=== PATIENT | male | born 1980 | race Hispanic/Latino ===

== ENCOUNTER → 2021-10-07 | Outpatient (CLI) | payer OTHER ==
[~2021-10-07] MED LIST: DAPA1TAB3 PO; NAPR220C15 PO; SIMV40TA59 PO
== END | disposition home or self-care (01) ==
LOC: OIH 14:02
PROVIDERS: ATTEND Internal Medicine Nephrology
DX: Z13.6 Encounter for screening for cardiovascular disorders (principal)
CPT/HCPCS: 75571